=== PATIENT | female | born 1970 | race African-American/Black ===

== ENCOUNTER 2025-02-07 14:10 | Outpatient (CLI) | payer OTHER, SELFPAY ==
--- NOTE | ~2025-02-07 | MR_ITS ---
MRI of the left ankle Clinical history: Achilles tendinitis Technique: Coronal proton-density and proton-density fat-sat images, axial proton-density and proton- density fat-sat images, and sagittal proton-density and proton-density fat-sat images were acquired. Findings: Syndesmotic ligaments are intact. Anterior and posterior talofibular ligaments, and calcane ofibular ligament appear intact. There is mild increased signal of the anterior talofibular and calca yosi fibular ligaments, which could reflect sequela of prior sprain. Altered ligament intact. Medial flexor tendons, peroneal tendons, anterior extensor tendons, and Achilles tendon are intact. No osteochondral lesion of the talar dome seen. Subtalar joint effusion present. Joint spaces are int act. Plantar fascia intact. No soft tissue mass or fluid collection evident. There is mild subcutaneous so ft tissue edema about the ankle, nonspecific. Impression: Visualized tendons are intact. In particular, Achilles tendon is unremarkable. Increased signal of the anterior talofibular and calcaneofibular ligaments suggests sequela of prior sprain. Mild subcutaneous soft tissue edema, nonspecific. Reviewed, dictated and finalized at [facility]. Impression: Visualized tendons are intact. In particular, Achilles tendon is unremarkable. Increased signal of the anterior talofibular and calcaneofibular ligaments sugg ests sequela of prior sprain. Mild subcutaneous soft tissue edema, nonspecific.
== END 2025-02-07 14:11 | disposition home or self-care (01) ==
LOC: MICIMG 14:10
PROVIDERS: PCP Nurse Practitioner Family; Visit Provider Podiatrist Foot & Ankle Surgery
DX: M76.62 Achilles tendinitis, left leg (principal)
CPT/HCPCS: 73721

== ENCOUNTER 2025-03-04 15:34 | Outpatient (CLI) | payer OTHER, SELFPAY ==
--- NOTE | ~2025-03-04 | MM_ITS ---
EXAMINATION: MM screening raul BI w megan HISTORY: Screening TECHNIQUE: Craniocaudal and mediolateral oblique 3-D tomosynthesis images were obtained and synthetic 2-D images were generated. CAD analysis was submitted and interpreted. COMPARISON: No prior mammogram is available for comparison at this institution. BREAST PARENCHYMAL COMPOSITION: There are scattered areas of fibroglandular density. FINDINGS: Punctate calcifications detected bilaterally, morphologically benign in appearance, dermal in origin. Otherwise unremarkable parenchymal pattern without suspicious microcalcifications, architectural dist ortion, discrete masses or significant asymmetry. IMPRESSION: 1. No mammographic or tomographic evidence of malignancy. 2. Recommend routine screening mammography in one year. BI-RADS Category 2: Benign finding(s). Reviewed, dictated and finalized at location A.
--- OUTSIDE RECORDS SUMMARY | 2025-03-04 15:37 | XMS_ITS | Patient Health Record ---
Author Organization [facility] Address [address] [place] [address] Care Team Providers Care Construction Crew Member Name Role Phone Leonel Ortiz Unavailable [phone] Allergies Allergen (clinical drug ingredient) Drug/Non Drug Allergy documented on EMR Reaction Allergy Type Onset Date Status morphine Morphine hives Drug Allergy Active Reason For Referral No Information Medications Medication SIG (Take, Route, Frequency, Duration) Notes Start Date End Date Status Atenolol-Chlorthalidone 100-25 MG Oral; Duration: 30 Active Social History Tobacco Use: Social History Observation Description Date Details (start date - stop date) Never Smoker NA - NA Tobacco Use/Smoking Question Answer Notes Are you a nonsmoker Problems Problem Type SNOMED Code ICD Code Onset Dates Problem Status W/U Status Risk Notes Problem Lumbar radiculopathy (659371854) Radiculopathy , lumbar region (M54.16) Active confirmed Problem Herniated nucleus pulposus, L4-5 left (M51.26) Active confirmed Plan Of Treatment No Information Medications Administered Medication Instructions Date of Administration Dosage Notes LEFT L4/5 SESI 08/17/2021 Medical (General) History Medical History History ICD Code High blood pressure bladder infections chronic bronchitis Surgical History Surgery Date(Month/Year) partial hysterectomy 1997 section 1989, , cholecystectomy 1999 Hospitalization History Reason Date(Month/Year) cholecystectomy 1999 section 1989, ,
--- OUTSIDE RECORDS SUMMARY | 2025-03-04 15:37 | XMS_ITS | Clinical Summary ---
Author Organization [facility] Health Address [address] [place] [address] Care Team Providers Care Litigation Secretary Name Role Phone Unavailable Primary Care Provider Unavailabl e Social History Tobacco Use Types Packs/Day Years Used Date Smoking Tobacco: Never Assessed Comments Unknown Sex and Gender Information Value Date Recorded Sex Assigned at Not on file Legal Sex Female 1:34 AM PST Gender Identity Not on file Sexual Orientation Not on file Plan of Treatment Not on file
--- OUTSIDE RECORDS SUMMARY | 2025-03-04 15:38 | XMS_ITS | Data Portability ---
Author Organization [facility] in Office Address [address] [place] [address] Assessment Encounter Date Assessment Date Assessment LastModified by Organization Details LastModified Time 10/24/2024 10/24/2024 I spent 22 minutes of jeix-nj-mdnv counselling and care coordination time with the patient. This includes reviewing medical records (medical, surgical, family and social history); updating medication and allergy information in the electronic health record; and ordering labs, medications, and education materials to continue patient care. Not available 10/24/2024 19:30:08 11/21/2024 11/21/2024 I spent 21 minutes of xfss-dm-ahhr counselling and care coordination time with the patient. This includes reviewing medical records (medical, surgical, family and social history); updating medication and allergy information in the electronic health record; and ordering labs, medications, and education materials to continue patient care. Not available 11/21/2024 20:08:04 12/19/2024 12/19/2024 I spent 25 minutes of wlrb-lc-hjoq counselling and care coordination time with the patient. This includes reviewing medical records (medical, surgical, family and social history); updating medication and allergy information in the electronic health record; and ordering labs, medications, and education materials to continue patient care. Not available 12/19/2024 18:39:44 01/16/2025 01/16/2025 I spent 21 minutes of xtcv-ip-csva counselling and care coordination time with the patient. This includes reviewing medical records (medical, surgical, family and social history); updating medication and allergy information in the electronic health record; and ordering labs, medications, and education materials to continue patient care. Not available 01/16/2025 17:00:33 02/25/2025 02/25/2025 I spent 22 minutes of sies-uw-qqan counselling and care coordination time with the patient. This includes reviewing medical records (medical, surgical, family and social history); updating medication and allergy information in the electronic health record; and ordering labs, medications, and education materials to continue patient care. Not available 02/25/2025 19:55:20 Plan of Treatment Reminders Order Date Submit Date Provider Last Modified By Organization Details Last Modified Time Details Appointments [id number] 2024 04:45P M Sivan guzman, FARHAT Not available Not available Not available Lab CMP, serum or plasma 2024 025 [employer] [facility] [place], [address], 03/01/2025 07:43:15 CBC w/ auto diff 2024 025 [employer] [facility], [facility] [place], [address], 03/01/2025 07:43:16 HbA1c (hemoglob in A1c), blood 2024 025 [employer] [place] [address] [place], [address], 03/01/2025 07:43:19 insulin, serum - FASTING 2024 025 [employer] [facility], [facility] [place], [address], 03/01/2025 07:43:18 C-peptide , serum 2024 025 [employer] [facility], [facility] [place], [address], 03/01/2025 07:43:17 Referral nutrition ist/albai willy referral - Pt had her RD no show her visit with her. Would like to get this new appt reschedul ed please. 2024 STANLEY Santosjerzykaylee, [address] [facility], [facility] [address], [place], [address], 12/19/2024 04:14:45 Procedures None recorded. Surgeries None recorded. Imaging None recorded. Medication Orders Mounjaro 15 mg/0.5 mL subcutane ous pen injector [id number] [facility]24[facility], [address], [place], [id number], 02/25/2025 20:54:01 Mounjaro 15 mg/0.5 mL subcutane ous pen injector 2024 025 [facility]05359, [address], [place], [id number], 01/16/2025 17:48:12 nystatin 100,000 unit/gram topical powder 2024 025 [facility] #78937, [address], [place], [id number], 12/19/2024 20:53:04 nystatin- triamcino lone 100,000 unit/g-0. 1 % topical cream 2024 025 [facility] #04505, [address], [place], [id number], 12/19/2024 20:53:06 Mounjaro 15 mg/0.5 mL subcutane ous pen injector 2024 025 [facility]53176, [address], [place], [id number], 12/19/2024 20:50:52 estradiol 1 mg/gram (0.1 %) transderm al gel packet 2024 025 [facility] #36748, [address], [place], [place], [id number], 11/21/2024 18:58:54 Prometriu m 100 mg capsule 2024 025 [facility] #60902, [address], [place], [place], [id number], 11/21/2024 18:58:55 Mounjaro 12.5 mg/0.5 mL subcutane ous pen injector 2024 025 [facility] #31892, [address], [place], [place], [id number], 12/19/2024 20:51:10 Mounjaro 10 mg/0.5 mL subcutane ous pen injector 2024 025 [facility] #94346, [address], [place], [place], [id number], 12/05/2024 21:40:03 Patient TargetsNo targets recorded. Patient Instructions Encounter Date Encounter Id Patient Instructions Last Modified By Organization Details Last Modified Time 10/24/2024 [id number] Any requested follow-up visits are listed below in the Plan of Care section. Go directly to the [employer] harvest contractor at [email or web address] to book a time. Not available 10/24/2024 16:33:42 It was a pleasur e to meet with you today! We discussed your progress with Mounjaro for weight management and your recent experience with rosuvastatin for cholesterol management. Your Care Plan Together, we decided that you would: - Increase your Mounjaro dosage to 10 mg. - Discontinue rosuvastatin due to leg pain. - Repeat cholesterol levels in six months. - Follow-up appointment scheduled for November 21 at 5:45 pm. Please carefully review the care plan we have decided upon, specific information regarding your medication, and important details about your treatment detailed below. Thank you for trusting us with your care! Not available 10/24/2024 19:27:34 11/21/2024 [id number] Any requested follow-up visits are listed below in the Plan of Care section. Go directly to the [employer] harvest contractor at [email or web address] to book a time. Not available 11/21/2024 19:01:46 It was a pleasur e to meet with you today! We discussed your health concerns related to weight management and dietary nutrition. Your Care Plan Together, we decided that you would: - Increase your Mounjaro dosage to 12.5 mg. - Continue taking Dulcolax liquid as needed for constipation. - Start taking Prometrium 100 mg in the evening to improve sleep quality. - Schedule a follow-up appointment on December 19. - Increase your protein intake by incorporating protein-rich foods such as yogurt into your diet. - Reconnect with a registered dietitian for personalized dietary guidance. - Continue drinking plenty of water throughout the day. - Monitor your weight and report any significant changes. - Avoid high-calorie side dishes and focus on balanced meals. - Stay active and gradually increase physical activity as your foot condition improves. - Contact your clinician if you experience any adverse effects from the medications or if you have any questions or concerns about your treatment plan. Not available 11/21/2024 19:01:46 12/19/2024 [id number] Any requested follow-up visits are listed below in the Plan of Care section. Go directly to the [employer] harvest contractor at [email or web address] to book a time. Not available 12/19/2024 18:31:53 It was a pleasur e to meet with you today! We discussed your health concerns related to constipation, a rash, and weight management. Your Care Plan Together, we decided that you would: - Take Linzess on an as-needed basis rather than daily, especially on days when you are not working. - Start using Nystatin powder for the rash under your stomach to keep the area dry and prevent fungal infections. - Use a steroid ointment as needed if the rash becomes extra irritated. - Increase your Mounjaro dosage to 15 mg. If you do not tolerate this dosage well, please let me know. - Continue taking your blood pressure medication at the increased dosage of 40 mg as prescribed by your other doctor. - Continue taking gabapentin at night for sciatic nerve pain. - Schedule a follow-up appointment in about four weeks to monitor your progress and make any necessary adjustments to your treatment plan. Please carefully review the care plan we have agreed upon above, which includes specific information about your medication, and other important details about your overall care. Thank you for trusting us with your care! Not available 12/19/2024 18:45:57 01/16/2025 [id number] Any requested follow-up visits are listed below in the Plan of Care section. Go directly to the [employer] harvest contractor at [email or web address] to book a time. Not available 01/16/2025 16:40:36 It was a pleasur e to meet with you today! We discussed your health concerns related to weight management, blood pressure, and fatigue. Your Care Plan Together, we decided that you would: - Continue taking Mounjaro at the current dosage. - Start taking the additional 5 mg of amlodipine as prescribed by your other doctor, in addition to the 40 mg you are already taking. - Begin taking Vitamin B12 supplements, 5,000 to 10,000 micrograms once daily, to help with fatigue. Take this in the morning with your other medications. - Stay hydrated, especially during the summer months. - Maintain your current level of physical activity, including walking during your breaks and lunch. - Monitor your blood pressure regularly to ensure it stabilizes with the new medication. - Consider discussing your workload and stress levels with your employer, as high stress can contribute to elevated blood pressure and fatigue. - Follow up in six weeks to reassess your progress and make any necessary adjustments to your treatment plan. Please carefully review the care plan we have decided upon above, including specific information about your medication, and any other important details about your overall care. Thank you for trusting us with your care! It was a pleasure to meet with you today! We discussed your health concerns related to weight management, blood pressure, and fatigue. Your Care Plan Together, we decided that you would: - Continue taking Mounjaro at the current dosage. - Start taking the additional 5 mg of amlodipine as prescribed by your other doctor, in addition to the 40 mg you are already taking. - Begin taking Vitamin B12 supplements, 5,000 to 10,000 micrograms once daily, to help with fatigue. Take this in the morning with your other medications. - Stay hydrated, especially during the summer months. - Maintain your current level of physical activity, including walking during your breaks and lunch. - Monitor your blood pressure regularly to ensure it stabilizes with the new medication. - Consider discussing your workload and stress levels with your employer, as high stress can contribute to elevated blood pressure and fatigue. - Follow up in six weeks to reassess your progress and make any necessary adjustments to your treatment plan. Please carefully review the care plan we have decided upon above, including specific information about your medication, and any other important details about your overall care. Thank you for trusting us with your care! Not available 01/16/2025 17:48:16 02/25/2025 [id number] Any requested follow-up visits are listed below in the Plan of Care section. Go directly to the [employer] harvest contractor at [email or web address] to book a time. To schedule or modify your visit, access the [employer] portal here: [email or web address] [email or web address] Not available 02/25/2025 19:58:30 For more information regarding common questions about weight in midlife, watch this short video from our Bilingual Secretary, . You will need to copy the following link into your browser to access the video: [email or web address] Of course, if you have further questions after watching, please reach out and I will be happy to support you. Dear Jake, It was great to see you today! Below is a summary of the plan we decided upon together: Type 2 diabetes - Please complete your fasting labs (hemoglobin A1c and fasting insulin) at [facility] as soon as possible. - Once results are back, we may add metformin or glipizide to improve blood sugar control and support further weight loss. - Continue your weekly Mounjaro injections as directed. Weight management - While your shirts feel slightly looser, the scale has not moved; keep tracking food portions and aim for gradual increases in daily steps. - Short walks during work breaks are helpful; try adding an evening or weekend walk when feasible. Blood pressure - Your blood pressure is well controlled with lisinopril 40 mg; keep taking it daily and monitor at home if you have a cuff. Cholesterol - No changes today; we will recheck a lipid panel at your next visit. Follow up - Our next telehealth visit is scheduled in four weeks; message me sooner once your labs are complete. If you have any questions or experience any new symptoms, please do not hesitate to reach out to our office. Sincerely, Sivan Salcedo NP [id number] Not available 02/25/2025 19:58:30 Reason for Referral Top Waddy/dietitian Refer ral for Diet education DM2 & Obesity Pt had her RD no show her visit with her. Would like to get this new appt rescheduled please. Referring Physician: Sivan Salcedo, Gynecology, Encounter Date: 11/21/2024 Results Created Date Observation Date Name Description Value Unit Range Abnormal Flag Note LastModifiedBy Organization Detail LastModifiedTime 02/29/2003/01/2025 COMPR EHENS PATRICIA METAB OLIC PANEL glucose 99 mg/dL 65-99 normal Fasti ng refer ence inter colton Not Available [employer] [facility] [address] [place], [address], 03/01/2025 07:43:15 02/29/20 25 03/01/2025 COMPR EHENS PATRICIA METAB OLIC PANEL urea nitrogen (BUN) 19 mg/dL 7-25 normal Not Available [employer] [facility] [address] [place], [address], 03/01/2025 07:43:15 02/29/20 25 03/01/2025 COMPR EHENS PATRICIA METAB OLIC PANEL creatinine 1.09 mg/dL 0.50-1 .03 high Not Available [address], [address], 03/01/2025 07:43:15 02/29/2003/01/2025 COMPR EHENS PATRICIA METAB OLIC PANEL eGFR 61 mL/mi n/1.7 3m2 > or = 60 normal Not Available [address], [address], 03/01/2025 07:43:15 02/29/2003/01/2025 COMPR EHENS PATRICIA METAB OLIC PANEL BUN/creatini ne ratio 17 (calc ) 6-22 normal Not Available [address], [address], 03/01/2025 07:43:15 02/29/20 25 03/01/2025 COMPR EHENS PATRICIA METAB OLIC PANEL sodium 141 mmol/ L 135-14 6 normal Not Available [address], [address], 03/01/2025 07:43:15 02/29/20 25 03/01/2025 COMPR EHENS PATRICIA METAB OLIC PANEL potassium 4.5 mmol/ L 3.5-5. 3 normal Not Available [address], [address], 03/01/2025 07:43:15 02/29/2003/01/2025 COMPR EHENS PATRICIA METAB OLIC PANEL chloride 106 mmol/ L 98-110 normal Not Available [address], [address], 03/01/2025 07:43:15 02/29/20 25 03/01/2025 COMPR EHENS PATRICIA METAB OLIC PANEL carbon dioxide 28 mmol/ L 20-32 normal Not Available [address], [address], 03/01/2025 07:43:15 02/29/2003/01/2025 COMPR EHENS PATRICIA METAB OLIC PANEL calcium 9.3 mg/dL 8.6-10 .4 normal Not Available [address], [address], 03/01/2025 07:43:15 02/29/2003/01/2025 COMPR EHENS PATRICIA METAB OLIC PANEL protein, total 7.5 g/dL 6.1-8. 1 normal Not Available [address], [address], 03/01/2025 07:43:15 02/29/2003/01/2025 COMPR EHENS PATRICIA METAB OLIC PANEL albumin 4.5 g/dL 3.6-5. 1 normal Not Available [address], [address], 03/01/2025 07:43:15 02/29/2003/01/2025 COMPR EHENS PATRICIA METAB OLIC PANEL globulin 3.0 g/dL_ (calc ) 1.9-3. 7 normal Not Available [address], [address], 03/01/2025 07:43:15 02/29/2003/01/2025 COMPR EHENS PATRICIA METAB OLIC PANEL albumin/glob ulin ratio 1.5 (calc ) 1.0-2. 5 normal Not Available [address], [address], 03/01/2025 07:43:15 02/29/2003/01/2025 COMPR EHENS PATRICIA METAB OLIC PANEL bilirubin, total 0.5 mg/dL 0.2-1. 2 normal Not Available [address], [address], 03/01/2025 07:43:15 02/29/20 25 03/01/2025 COMPR EHENS PATRICIA METAB OLIC PANEL alkaline phosphatase 51 U/L 37-153 normal Not Available [facility] [employer] [address], [address], 03/01/2025 07:43:15 02/29/20 25 03/01/2025 COMPR EHENS PATRICIA METAB OLIC PANEL AST 10 U/L 10-35 normal Not Available [address], [address], 03/01/2025 07:43:15 02/29/2003/01/2025 COMPR EHENS PATRICIA METAB OLIC PANEL ALT 9 U/L 6-29 normal Not Available [address], [address], 03/01/2025 07:43:15 02/29/20 25 03/01/2025 CBC (INCL UDES DIFF/ PLT) white blood cell count 6.3 thous and/u L 3.8-10 .8 normal Not Available [address], [address], 03/01/2025 07:43:16 02/29/20 25 03/01/2025 CBC (INCL UDES DIFF/ PLT) red blood cell count 4.70 daniel on/uL 3.80-5 .10 normal Not Available [address], [address], 03/01/2025 07:43:16 02/29/2003/01/2025 CBC (INCL UDES DIFF/ PLT) hemoglobin 13.9 g/dL 11.7-1 5.5 normal Not Available [address], [address], 03/01/2025 07:43:16 02/29/20 25 03/01/2025 CBC (INCL UDES DIFF/ PLT) hematocrit 43.1 % 35.0-4 5.0 normal Not Available [address], [address], 03/01/2025 07:43:16 02/29/2003/01/2025 CBC (INCL UDES DIFF/ PLT) MCV 91.7 fL 80.0-1 00.0 normal Not Available [facility] [address], [address], 03/01/2025 07:43:16 02/29/2003/01/2025 CBC (INCL UDES DIFF/ PLT) MCH 29.6 pg 27.0-3 3.0 normal Not Available [facility] [address], [address], 03/01/2025 07:43:16 02/29/2003/01/2025 CBC (INCL UDES DIFF/ PLT) MCHC 32.3 g/dL 32.0-3 6.0 normal For adult s, a sligh t decre ase in the calcu lated MCHC value (in the range of 30 to 32 g/dL) is most likel y not clini mack signi darwin t; josy er, it shoul d be inter prete d with cauti on in [facility] n with other red cell maria isabel eters and the patie nt's clini christa condi tion. Not Available [address], [address], 03/01/2025 07:43:16 02/29/2003/01/2025 CBC (INCL UDES DIFF/ PLT) RDW 15.0 % 11.0-1 5.0 normal Not Available [facility] [address], [address], 03/01/2025 07:43:16 02/29/2003/01/2025 CBC (INCL UDES DIFF/ PLT) platelet count 196 thous and/u L 140-40 0 normal Not Available [facility] [address], [address], 03/01/2025 07:43:16 02/29/20 25 03/01/2025 CBC (INCL UDES DIFF/ PLT) MPV 9.6 fL 7.5-12 .5 normal Not Available [address], [address], 03/01/2025 07:43:16 02/29/20 25 03/01/2025 CBC (INCL UDES DIFF/ PLT) absolute neutrophils 3711 cells /uL 1500-7 800 normal Not Available [address], [address], 03/01/2025 07:43:16 02/29/2003/01/2025 CBC (INCL UDES DIFF/ PLT) absolute lymphocytes 2136 cells /uL 850-39 00 normal Not Available [address], [address], 03/01/2025 07:43:16 02/29/20 25 03/01/2025 CBC (INCL UDES DIFF/ PLT) absolute monocytes 359 cells /uL 200-95 0 normal Not Available [address], [address], 03/01/2025 07:43:16 02/29/20 25 03/01/2025 CBC (INCL UDES DIFF/ PLT) absolute eosinophils 63 cells /uL 15-500 normal Not Available [address], [address], 03/01/2025 07:43:16 02/29/20 25 03/01/2025 CBC (INCL UDES DIFF/ PLT) absolute basophils 32 cells /uL 0-200 normal Not Available [address], [address], 03/01/2025 07:43:16 02/29/20 25 03/01/2025 CBC (INCL UDES DIFF/ PLT) neutrophils 58.9 % normal Not Available [address], [address], 03/01/2025 07:43:16 02/29/2003/01/2025 CBC (INCL UDES DIFF/ PLT) lymphocytes 33.9 % normal Not Available [address], [address], 03/01/2025 07:43:16 02/29/2003/01/2025 CBC (INCL UDES DIFF/ PLT) monocytes 5.7 % normal Not Available [address], [address], 03/01/2025 07:43:16 02/29/2003/01/2025 CBC (INCL UDES DIFF/ PLT) eosinophils 1.0 % normal Not Available [address], [address], 03/01/2025 07:43:16 02/29/2003/01/2025 CBC (INCL UDES DIFF/ PLT) basophils 0.5 % normal Not Available [address], [address], 03/01/2025 07:43:16 02/29/2003/01/2025 C-PEP TIDE C-peptide 3.98 NG/mL 0.80-3 .85 high Not Available [address], [address], 03/01/2025 07:43:17 02/29/2003/01/2025 INSUL IN insulin 31.0 uIU/m L high Refer ence Range < or = 18.4 Risk: Optim al < or = 18.4 Moder ate NA High >18.4 Adult cardi ovasc ular event risk categ ory cut point s (opti mal, moder ate, high) are based on Insul in Refer ence Inter colton studi es perfo rmed at [facility] Diagn ostic s in 2021. Not Available [address], [place], [address], 03/01/2025 07:43:18 02/29/20 25 03/01/2025 HEMOG LOBIN A1C hemoglobin A1C 6.1 %_of_ total _HGB <5.7 high For someo ne witho ut known diabe norman, a hemog lobin A1c value betwe en 5.7% and 6.4% is consi stent with predi abete s and shoul d be confi rmed with a follo w-up test. For someo ne with known diabe norman, a value <7% indic ates that their diabe norman is well contr olled . A1c targe ts shoul d be indiv idual ized based on durat ion of diabe norman, age, comor bid condi tions , and other consi derat ions. This assay resul t is consi stent with an incre ased risk of diabe norman. Curre ntly, no conse nsus exist s regar cindy use of hemog lobin A1c for diagn osis of diabe norman for child lam. Not Available [facility] [place] [address] [place], [address], 03/01/2025 07:43:19 Result Notes None recorded. Problems Name Problem SNOMED Code Status Onset Date Resolution Date Notes Provider Name and Address Organization Details Recorded Time Menopausal symptom 28570766 Active 2023 [place] [address] [place], [address], [employer] 4 08:25:14 Type 2 diabetes mellitus without complication 548378935 Active 2023 [place] [address] [place], [address], [employer] [facility] 4 08:53:32 History of hysterectomy 321800779 Active 2023 [place] [address] [place], [address], [employer] [facility] 4 08:53:43 Visual impairment 685131524 Active 2023 [place] [address] [place], [address] [place] [address] 2, [facility] 4 08:18:52 Hypertensive disorder 77827040 Active 2024 [place] [address] [place], [address], [facility] 5 18:59:15 Abnormal weight gain 726337763 Active 2024 Sivan guz[place] [address], [address], [facility] 5 19:26:24 Hyperlipidemia 36060461 Active 2024 Sivan guzman [place] [address] [place], [address], [facility] 5 19:26:42 Irritable bowel syndrome characterized by constipation 438771051 Active 2024 Sivan guz[place] [address] [place] [address], [facility] 5 21:41:53 Eruption 262059147 Active 2024 Sivan guzman [place] [address] [place], [address], [facility] 5 18:44:00 Essential hypertension 27461158 Active 2024 Sivan guzman [place] [address] [place] [address], [facility] 18:44:25 Obesity 909323728 Active 2024 Sivan guzman [place] [address] [place] [address], [facility] 5 19:43:46 Type 2 diabetes mellitus 30390317 Active 2024 Sivan gu[place] [address] [place] [address] 2, [facility] 22:29:47 Problem Notes None recorded. Procedures Surgical History Date Name Laterality Status Provider Name and Address Organization Details Recorded Time 07/29/20 Date of Last Mammogram completed FARHAT PortilloNovato [facility] 10/03/2024 19:14:56 03/18/20 24 Date of Last Pap Smear [place] [id number], [facility] 05/07/2024 11:01:58 11/18/19 Date of Last Colonoscopy completed FARHAT Portillo [place] [id number], [facility] 05/07/2024 11:01:58 Partial hysterectomy completed FARHAT Portillo [facility] , [facility] 05/10/2024 08:55:50 procedure on gallbladder completed FARHAT Portillo [place] [id number], [facility] 05/10/2024 08:56:00 delivery completed FARHAT Portillo [place] [id number], [facility] 05/10/2024 08:56:11 Imaging Results None recorded. Procedure Notes None recorded. Medical Equipment None Reported. Allergies Allergen ID Allergen Name Allergen Category Reaction Reaction Severity Criticality Documentation Date Start Date Code Code System Note Provider Name and Address Organization Details Recorded Time 21528 morphine medicatio n Not available Not available Not available 05/07/2024 7052 RxNorm FARHAT [facility] 2, [facility] 11:01:57 61496 levofloxa lc medicatio n Not available Not available Not available 05/07/2024 51617 RxNorm FARHAT [facility] 2, [facility] [employer] 4 11:01:57 Medications Name Sig Start Date Stop Date Status Note LastModified by Organization Details LastModified Time cyclobenzap rine 10 mg tablet TAKE 1 TABLET BY MOUTH THREE TIMES DAILY NEEDED FOR MUSCLE SPASM active Not Available Not Available No t Available Colace 100 mg capsule Take 1 capsule twice a day by oral route as directed for 30 days. 2024 active Not Available Not Available Not Avai lable lisinopril 20 mg tablet TAKE 1 TABLET BY MOUTH EVERY DAY IN THE MORNING 12/19 completed Not Available Not Available Not Available estradiol 0.05 mg/24 hr weekly transdermal patch APPLY 1 PATCH TOPICALLY TO THE SKIN EVERY WEEK DIRECTED 06/28 completed Not Available Not Available Not Available phentermine 37.5 mg tablet TAKE 2 TABLETS BY MOUTH ONCE DAILY 08/15 completed Not Available Not Available Not Available amlodipine 5 mg tablet TAKE 1 TABLET BY MOUTH DAILY 02/25 completed Not Available Not Available Not Available meloxicam 7.5 mg tablet TAKE 1 TABLET BY MOUTH DAILY active Not Available Not Available No t Available methocarbam ol 750 mg tablet TAKE 1 TABLET BY MOUTH THREE TIMES DAILY FOR 7 DAYS NEEDED active Not Available Not Available No t Available amlodipine 10 mg tablet TAKE 1 TABLET BY MOUTH EVERY DAY 02/25 completed Not Available Not Available Not Available cyanocobala min (vit B-12) 1,000 mcg/mL injection solution INJECT 1 ML INTO THE MUSCLE ONCE EVERY 3 WEEKS active Not Available Not Available No t Available lisinopril 10 mg tablet TAKE 1 TABLET BY MOUTH ONCE DAILY 02/25 completed Not Available Not Available Not Available nystatin-tr iamcinolone 100,000 unit/g-0.1 % topical cream MAY APPLY TO THE AFFECTED AREA(S) BY TOPICAL ROUTE 2 TIMES PER DAY IN THE MORNING AND EVENING PRN active Not Available Not Available No t Available BD Luer-Chely Syringe 3 mL 25 gauge x 1 INJECT 1 SYRINGE INTRAMUSC ULARLY EVERY 3 WEEKS active Not Available Not Available No t Available gabapentin 300 mg capsule TAKE 1 CAPSULE BY MOUTH AT BEDTIME active Not Available Not Available No t Available methylpredn isolone 4 mg tablets in a dose pack FOLLOW PACKAGE DIRECTION S 12/19 completed Not Available Not Available Not Available lisinopril 40 mg tablet TAKE 1 TABLET BY MOUTH DAILY active Not Available Not Available No t Available topiramate 100 mg tablet TAKE 1 TABLET BY MOUTH EVERY NIGHT AT BEDTIME active Not Available Not Available No t Available metformin ER 500 mg tablet,exte nded release 24 hr Take 1 tablet every day by oral route at dinner for 30 days. 2024 active Not Available Not Available Not Avai lable progesteron e micronized 100 mg capsule TAKE 1 CAPSULE BY MOUTH EVERY NIGHT AT BEDTIME active Not Available Not Available No t Available rosuvastati n 5 mg tablet TAKE 1 TABLET BY MOUTH EVERY NIGHT AT BEDTIME 10/24 completed Not Available Not Available Not Available BD PrecisionGl mar 25 gauge x 1 needle INJECT 1 NEEDLE INTRAMUSC ULARLY EVERY 3 WEEKS active Not Available Not Available No t Available estradiol 1 mg/gram (0.1 %) transdermal gel packet Apply 1 packet every day by transderm al route as directed for 90 days. 2024 active Not Available Not Available Not Avai lable estradiol 0.5 mg/0.5 gram (0.1 %) transdermal gel packet Apply 1 packet every day by transderm al route in the morning for 30 days. 08/15 completed Not Available Not Available Not Available Linzess 145 mcg capsule Take 1 capsule every day by oral route in the morning for 90 days. 2024 active Not Available Not Available Not Avai lable vit C 1,000 mg-multivit -minerals-M SM 1,000 mg oral efferv powder pack active Not Available Not Available Not Available Ozempic 0.25 mg or 0.5 mg (2 mg/1.5 mL) subcutaneou s pen injector 06/28 completed Not Available Not Available Not Available Ozempic 1 mg/dose (4 mg/3 mL) subcutaneou s pen injector INJECT 1 MG UNDER THE SKIN EVERY WEEK DIRECTED 08/15 completed Not Available Not Available Not Available Ozempic 2 mg/dose (8 mg/3 mL) subcutaneou s pen injector Inject 2 mg every week by subcutane ous route as directed for 30 days. 08/15 completed Not Available Not Available Not Available Mounjaro 7.5 mg/0.5 mL subcutaneou s pen injector ADMINISTE R 7.5 MG UNDER THE SKIN EVERY WEEK DIRECTED 11/21 completed Not Available Not Available Not Available Mounjaro 5 mg/0.5 mL subcutaneou s pen injector ADMINISTE R 5 MG UNDER THE SKIN EVERY WEEK DIRECTED 10/24 completed Not Available Not Available Not Available Mounjaro 15 mg/0.5 mL subcutaneou s pen injector Inject 15 mg every week by subcutane ous route as directed for 90 days. 2024 active Not Available Not Available Not Avai lable Mounjaro 10 mg/0.5 mL subcutaneou s pen injector ADMINISTE R 10 MG UNDER THE SKIN EVERY WEEK DIRECTED 12/05 completed Not Available Not Available Not Available Mounjaro 12.5 mg/0.5 mL subcutaneou s pen injector ADMINISTE R 12.5 MG UNDER THE SKIN EVERY WEEK DIRECTED 12/19 completed Not Available Not Available Not Available Mounjaro 2.5 mg/0.5 mL subcutaneou s pen injector ADMINISTE R 2.5 MG UNDER THE SKIN EVERY WEEK DIRECTED 09/12 completed Not Available Not Available Not Available Ozempic 0.25 mg or 0.5 mg (2 mg/3 mL) subcutaneou s pen injector INJECT 0.5 MG EVERY WEEK UNDER THE SKIN 06/28 completed Not Available Not Available Not Available Klayesta 100,000 unit/gram topical powder APPLY TO THE AFFECTED AREA TWICE DAILY NEEDED active Not Available Not Available No t Available Vitals Date Recorded Body height Body mass index (BMI) Body weight Provider Name and Address Organization Details Last Updated DateTime 10/24/2024 170.18 cm 39.2 kg/m2 922561.09 [place] [address] [place], [address] 10/24/2024 19:20:00 Date Recorded Body height Body mass index (BMI) Body weight Provider Name and Address Organization Details Last Updated DateTime 11/21/2024 170.18 cm 39.2 kg/m2 746566.09 [place] [address] [place], [address], [facility] 11/21/2024 18:48:25 Date Recorded Body height Body mass index (BMI) Body weight Provider Name and Address Organization Details Last Updated DateTime 12/19/2024 170.18 cm 38.4 kg/m2 060303.13 [place] [address] [place], , [facility] 12/19/2024 20:49:14 Date Recorded Body height Body mass index (BMI) Body weight Provider Name and Address Organization Details Last Updated DateTime 01/16/2025 170.18 cm 37.4 kg/m2 502829.[place] [address] [place], [address], [facility] 01/16/2025 16:46:59 Date Recorded Body height Body mass index (BMI) Body weight Provider Name and Address Organization Details Last Updated DateTime 02/25/2025 170.18 cm 37.4 kg/m2 789039.58 [place] [address] [place] [id number], [facility] 02/25/2025 19:49:10 Social History Question Answer Notes LastModified by [employer] Details LastModified Time Tobacco Smoking [place] [address] [place], [place], , [facility] 05/07/2024 09:44:48 What Is Your Relationship Status? Information not available 05/07/2024 Sex: Female Functional Status Question Answer Note LastModified by [employer] Details LastModified Time What is your level of alcohol consumption? None Information not available 05/07/2024 Are you currently employed? Yes Information not available 05/07/2024 What is your occupation? Occupation: [employer] Information not available 05/07/2024 Mental Status None recorded. Family History Relationship Description Onset Age of this Age Resolved Age Notes LastModified by Organization Details LastModified Time Mother Malignant tumor of breast 2019 Not available 08:29:56 Mother Hypothyroidi sm [id number] Not available 2024 19:03:00 Mother Type 2 diabetes mellitus [id number] Not available 2024 19:03:00 Medical History Condition Response Allergies (Food, seasonal, environmental ) N Other N Blood Transfusion N Drug/Latex Allergies/Reactions N Breast Cancer N Dermatologic Disorders N Lung Disease N Defects or Inherited Disease N Breast Problem N Gestational Diabetes N Hematologic disorders N Anesthesia Complications N History of STI N Polycystic ovary syndrome N Anxiety Disorder N Autoimmune disease N Arthritis N Infertility N Polyps N Acid Reflux (GERD) N History of abnormal pap N Cancer N Stroke N Varicosities N Neurologic/Epilepsy N Endometriosis Y High Cholesterol Y Headaches N Fibromyalgia N Kidney Disease N Heart Problems N Kidney or Bladder Problems N Thyroid Problems N GI Problems N Acne N Eating Disorder N Anemia N Art (IVF or FET) N Psychiatric Illness N Ovarian Cancer N Diabetes Y Pulmonary (TB, Asthma) N Hepatitis/Liver Disease N Eczema N Abuse/Domestic Violence N Trauma/Violence N Depression/ depression N Heart Disease N Pre-Eclampsia N Hypertension Y Osteoporosis N Thrombophilias N Gynecological History Statement/Question Response Date of Last Mammogram 07/29/2024 Date of Last Colonoscopy 11/17/2020 Date of LMP 2019 Date of Last Pap Smear 2024 Current Control Method Hysterectom y Approximate Hormone Replacement Therapy No Obstetrics History GPAL:G 4 P 3 1 0 3 Type Value Full Term 3 Premature 1 Living 3 Total 4 Past Encounters Encounter ID Performer Location Encounter Start Date Encounter Closed Date Diagnosis/Indication Diagnosis SNOMED-CT Code Diagnosis ICD10 Code Diagnosis Note [id number] Sivan Salcedo NP Main Office [address] [place] [address] 05/10/2024 07:34:01 05/13/2024 14:00:52 Menopausal symptom 17086239 N95.1 - Patient experienci ng hot flashes, night sweats, mood changes, weight gain, sleep disturbanc es, and brain fog.- Discussed the benefits of natural estrogen therapy, including improvemen t in menopausal symptoms and overall quality of life.- Educated on the use of topical estrogen (patch or gel) to minimize risks of stroke or clots.- Patient is a candidate for estrogen therapy due to less than 1% risk for breast cancer and stroke.- Initiated topical estrogen therapy.- Follow-up in 3 weeks to assess tolerance and effectiven ess of hormone regimen. Health edu cation given 332958288 Z71.9 - Provided detailed education on the benefits and risks of hormone therapy and GLP-1 injectable s.- Discussed the importance of hydration, protein, and fiber intake to mitigate side effects of Ozempic.- Educated on the importance of monitoring blood sugar levels and maintainin g a balanced diet.- Patient expressed understand ing and agreement with the treatment plan. Diet education 33407351 Z71.3 - Referred to a group of registered dietitians for virtual consultati ons covered by insurance. - Emphasized the importance of a balanced diet in managing diabetes and supporting weight loss.- Patient to receive educationa l resources and personaliz ed dietary plans from the dietitians . Type 2 marita betes mellitus without complication 551770970 E11.9 Z68.41 E78.5 I10 - Hemoglobin A1c reported to be over 6.5%, confirming diagnosis. - Discussed the use of GLP-1 injectable s (Ozempic) for weight loss and blood sugar control.- Educated on the administra tion of Ozempic, a once-weekl y injection, and potential side effects such as nausea.- Patient approved for Ozempic for one year by insurance. - Prescripti on for Ozempic sent to [facility].- Advised to monitor blood sugar levels and report any adverse effects.- Follow-up in 3 weeks to assess tolerance and effectiven ess of Ozempic. Screening for malignant neoplasm of breast 275694857 Z12.31 - Patient had a mammogram in February 2023 with normal results.- Order for annual mammogram sent to [facility].- Patient advised to call the hospital to confirm the order and schedule the appointmen t. Fatigue 57547071 R53.83 - Fatigue likely related to menopausal symptoms and Type 2 diabetes.- Addressing menopausal symptoms with hormone therapy and diabetes with Ozempic to improve overall energy levels.- Follow-up in 3 weeks to assess improvemen t in fatigue. History of hysterectomy 972908602 Z90.711 - Patient has a history of hysterecto my.- No need for progestero ne therapy unless estrogen alone is insufficie nt.- Monitoring for any symptoms that may require additional hormonal support. [id number] Sivan Salcedo NP Main Office [address] [place] [address] 05/31/2024 07:33:08 06/03/2024 07:55:22 Menopausal symptom 90196221 N95.1 - Patient experience d a severe headache, described as a migraine, after using the estradiol patch.- The patch failed to adhere properly to the skin despite multiple applicatio n attempts on different body areas and the use of additional adhesive aids.- Due to these issues, the estradiol patch will be discontinu ed.- Initiated estradiol gel or spray to be applied to the lower abdomen, with a reduced dose to mitigate the risk of headaches. - Patient educated on the new applicatio n method and advised to monitor for any adverse effects.- If insurance does not cover the new formulatio n, will explore options with the [facility] for better pricing. Type 2 marita betes mellitus without complication [id number] E11.9 Z68.41 E78.5 I10 - Patient is currently on Ozempic, initial dose tolerated without side effects.- Despite initial treatment, patient reports increased appetite.- Will increase the dose of Ozempic to enhance therapeuti c effect.- Prescripti on for the new dose sent to the patient's pharmacy.- Patient is also engaging in lifestyle modificati ons, including attending nutritioni st sessions at work and exercising at the gym 3-4 days a week.- Follow-up scheduled in 4 weeks to reassess the effectiven ess of the increased Ozempic dose and overall diabetes management . Screening for malignant neoplasm of breast 979233237 Z12.31 - Patient has a mammogram scheduled for later in July.- Will follow up on the results once the screening is completed. [id number] Sivan Salcedo NP Main Office [address] [place] [address] 06/28/2024 07:33:10 06/28/2024 15:32:49 Menopausal symptom 36793811 N95.1 - Patient is currently using estrogen gel applied to the upper thigh, which is effectivel y managing her symptoms without complicati ons.- Educated patient on proper applicatio n technique and confirmed that the gel is being absorbed well and not causing any issues.- No changes to the current hormone therapy regimen at this time. Type 2 marita betes mellitus without complication [id number] E11.9 Z68.41 E78.5 I10 - Patient is currently on Ozempic, previously at a dose of 0.5 mg weekly.- No adverse side effects reported from the medication .- Increased Ozempic dose to 1 mg weekly for the next 4 weeks to enhance glycemic control and potential weight loss.- Discussed the possibilit y of switching to Mounjaro if adequate weight loss is not achieved at higher doses of Ozempic.- Strongly recommende d the use of a nutritioni st for better management of type 2 diabetes.- No lab work required at this time.- Follow-up appointmen t scheduled for 4 weeks to re-evaluat e the effectiven ess of the increased Ozempic dose. Visual impairment 858470 003 H54.7 - Patient reports difficulty seeing at night, particular ly in poorly lit areas, which has become more noticeable since the time change.- Advised patient to follow up with an eye examinatio n to assess for potential changes in vision or need for a new prescripti on.- Patient has already scheduled an appointmen t with her optometris t.- Provided documentat ion for her employer to allow her to leave work 30 minutes early to avoid driving in the dark.- Educated patient on the commonalit y of decreased night vision with age and the importance of regular eye exams. [id number] Sivan Salcedo NP Main Office [address] [place] [address] 07/22/2024 08:08:09 07/24/2024 08:00:02 Type 2 diabetes mellitus without complication [id number] E11.9 Z68.41 E78.5 I10 - Patient has been on Ozempic, recently increased to 1 mg.- Tolerating the medication but experienci ng increased appetite.- Plan to increase the dose further as patient is three levels from the highest dose.- Follow-up in three weeks to monitor response to the increased dose.-Rout ine labs due to be ordered at her next follow up. Menopausal symptom 53437 002 N95.1 - Currently using estrogen gel.- Plan to increase estrogen dosage to counteract androgen effects, which may be contributi ng to symptoms such as hair growth.- Educated patient on the rationale for increasing estrogen to overpower androgen receptors. -Can consider addition of spironolac tone or other substance that would help decrease androgen levels and benefit hirsutism issues. Screening mammography 24 249959 Z12.31 - Confirmed that a mammogram was ordered due to an automated system prompt indicating it was due.- Advised patient to complete the mammogram for the year.- No further action required once the mammogram is completed. [id number] Sivan Salcedo NP Main Office [address] [place] [address] 08/15/2024 18:02:21 08/21/2024 13:51:34 Type 2 diabetes mellitus without complication [id number] E11.9 Z68.41 E78.5 I10 - Patient has been on Ozempic 2 mg monthly for the past >6 months with minimal weight loss (4-5 pounds).- Agreed to switch to Mounjaro; prior authorizat ion likely needed.- Ordered lab work to support liver and kidney function, re-evaluat e hemoglobin A1c, and fasting glucose.- Will consider adding an oral hypoglycem ic medication or referral to an endocrinol ogist based on lab results if needed.- Patient understand s and agrees with the treatment plan.-Hx HTN/High cholestero l/DM2/Obes ity-Discus sed switch from Ozempic to Mounjaro as well as risks/bene fits and difference s between the two therapies. -We will begin this therapy based on Insurance approval. Adult [facility] th examination [id number] Z00.00 - Referred patient to new primary care provider, Ambar Patel, in [place], [place] for ongoing management .- Instructed patient to make an appointmen t within the next 2-4 weeks.- If insurance issues arise, patient will notify us to find an alternativ e provider.- Sent necessary lab work to the new primary care provider. Fatigue 17545615 R53.83 - Patient reports significan t fatigue, and questions if labs are needed.-Up dated lab orders sent. Hypertensive disorder 38 755150 I10 - Patient's blood pressure has been elevated; bottom number was 93.- Patient increased lisinopril dose to 20 mg daily, resulting in symptomati c improvemen t.- Sent a 30-day supply of lisinopril 20 mg tablets to the pharmacy.- New primary care provider to monitor and potentiall y adjust antihypert ensive therapy. Menopausal symptom 63623 002 N95.1 - Patient stable on current estrogen gel therapy.- No refills needed at this time; patient will reach out if refills are required before follow-up. Achilles tendinitis 1165 4001 M76.60 - Patient has been experienci ng pain in the Achilles tendon, currently in a boot.- Referred to ict security specialist ; appointmen t scheduled for next .- Urgent care diagnosed inflammati on and prescribed antibiotic s.- Awaiting further evaluation by ict security specialist to rule out tear or other complicati ons. [id number] Sivan Salcedo NP Main Office [address] [place] [address] 09/12/2024 18:02:51 09/13/2024 04:10:56 Menopausal symptom 39076441 N95.1 - Patient stable on current estrogen gel therapy.- No refills needed at this time; patient will reach out if refills are required before follow-up. Type 2 marita betes mellitus without complication [id number] E11.9 Z68.41 E78.5 I10 - Patient was switched to Mounjaro and has been on the initial dose for one month.- Despite initial weight gain of 2 pounds, the dosage of Mounjaro will be increased to 5 mg.- Educated patient on the importance of adherence to the medication regimen and monitoring for any side effects.- Follow-up appointmen t scheduled in 3 weeks to assess response to the increased dosage. -Consider adding in Metformin 500mg if tolerates it along with Mounjaro IF we get to higher dosing and still not seeing the appropriat e weight loss occur. Will also wait for lab work to return. Hypertensive disorder 38 947665 I10 - Patient reports significan t improvemen t in symptoms with current antihypert ensive therapy (20 mg).- Advised patient to monitor blood pressure daily and maintain a log.- Patient to message blood pressure readings for documentat ion and further evaluation .- Reinforced the importance of adherence to the current medication regimen and regular monitoring .-Upcoming appointmen t with new PCP in October 2024. [id number] Sivan Salcedo NP Main Office [address] [place] [address] 10/03/2024 18:03:01 10/05/2024 04:07:32 Type 2 diabetes mellitus without complication [id number] E11.9 Z68.41 E78.5 I10 - Patient has been on Mounjaro 5 mg without any reported side effects.- Plan to increase the dosage to 7.5 mg for better glycemic control.- Prescripti on for Mounjaro 7.5 mg will be sent to the pharmacy.- Follow-up appointmen t scheduled for October 24 at 6:15 PM to monitor response to the increased dosage. Hypertensive disorder 38 471929 I10 - Patient has a 90-day supply of antihypert ensive medication already picked up.- No changes to current antihypert ensive regimen as blood pressure control appears stable.-Up coming appointmen t with new PCP in October 2024. Mixed hyperlipidemia 267 831549 E78.2 - Recent lab results show total cholestero l slightly elevated, but HDL cholestero l is at 86, which is favorable. - Triglyceri jin are low, and LDL cholestero l is at 110, slightly above the target of <100 but not concerning .- Patient is currently on a statin, which is effectivel y managing lipid levels.- Educated patient on the importance of monitoring LDL levels and maintainin g a healthy diet.- Plan to recheck cholestero l levels 6 months after reaching the optimal dose of Mounjaro to assess for further improvemen t.- Patient understand s and agrees with the treatment plan. [id number] Sivan Salcedo NP Main Office [address] [place] [address] 10/24/2024 18:32:31 10/25/2024 04:09:49 Type 2 diabetes mellitus without complication [id number] E11.9 Z68.41 E78.5 I10 - Patient is currently on Mounjaro, recently increased to 7.5 mg, now being increased to 10 mg.- Patient reports no side effects from the medication and has experience d a reduction in cravings, particular ly for ice cream.- Weight has decreased to 250 lbs, indicating some weight loss.- Educated patient on the importance of continued adherence to medication and lifestyle modificati ons.- Follow-up appointmen t scheduled for November 21 at 5:45 PM to monitor progress and adjust treatment as necessary. Hyperlipidemia [id number] E78.5 - Patient's LDL cholestero l is approximat gerber 10 points above the target level.- Patient had previously stopped taking rosuvastat in 5 mg due to perceived improvemen t in cholestero l levels.- Upon resuming rosuvastat in, patient experience d significan t leg pain and discontinu ed the medication again.- Advised patient to not restart rosuvastat in due to adverse effects.- Plan to re-evaluat e cholestero l levels in six months to assess the need for further treatment. - Educated patient on the importance of monitoring cholestero l levels and maintainin g a healthy diet and exercise regimen to manage hyperlipid emia. [id number] Sivan Salcedo NP Main Office [address] [place] [address] 11/21/2024 18:02:35 11/22/2024 04:09:31 Type 2 diabetes mellitus without complication [id number] E11.9 Z68.41 E78.5 I10 - Continues to experience weight reduction; weight currently 250 lbs, reflecting ongoing progress.- Prescribed Mounjaro (tirzepati de) 12.5 mg weekly; sent to the usual pharmacy.- Patient advised to maintain hydration with flavored water and to follow up for further adjustment as needed. Diet education [id number] Z71.3 - Patient referred for virtual registered dietitian consultati on for tailored dietary guidance, specifical ly strategies to increase protein intake while minimizing excessive side dishes.- Will coordinate scheduling with the dietitian and notify patient of any updates. Menopausal symptom 12827 002 N95.1 - Prescribed Prometrium (micronize d progestero ne) 100 mg nightly to support improved sleep quality.- Informed patient that enhanced rest may further assist weight management efforts. Abnormal weight gain [id number] R63.5 [id number] Sivan Salcedo NP Main Office [address] [place] [address] 12/19/2024 17:35:29 12/20/2024 04:46:28 Type 2 diabetes mellitus without complication [id number] E11.9 Z68.41 E78.5 I10 - Patient continues to experience changes in body compositio n, particular ly inches lost, indicating some therapeuti c response.- Dose of Mounjaro increased from 12.5 mg to 15 mg subcutaneo usly once weekly for improved glycemic and weight management ; advised to report any intoleranc e.- Patient encouraged to monitor for adverse effects and contact clinic if any concerns arise prior to next scheduled follow-up in approximat gerber four weeks. Eruption [id number] R21 - Patient reports an intertrigi nous rash along the abdominal region.- Started nystatin powder for antifungal and moisture control; instructed to apply powder regularly to keep the area dry.- Prescribed a low-potenc y topical steroid ointment to use as needed for additional irritation .- Advised patient to maintain adequate hygiene, allow the area to fully dry after bathing, and monitor for worsening symptoms. Essential hypertension [id number] I10 - Blood pressure medication dose increased to 40 mg daily (patient s external provider adjusted regimen last week).- Patient tolerating new dosage without reported side effects.- Continue current dosing; no additional interventi ons at this time. Constipation [id number] K5 9.00 - Patient describes intolerabl e GI side effects when taking Linzess consecutiv gerber; experience s abdominal cramping.- Advised patient to utilize Linzess as needed rather than daily, particular ly on days she can manage potential GI effects.- Instructed to maintain adequate hydration and fiber intake, and to reach out if symptoms worsen or remain unresolved . 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 [id number] Sivan Salcedo NP Main Office [address] [place] [address] 01/16/2025 16:07:39 01/17/2025 04:44:39 Abnormal weight gain [id number] R63.5 - Currently demonstrat ing gradual weight reduction (loss of approximat gerber 6 pounds recently), reflecting improved control compared to previous therapy.- Stable at this time; no additional interventi ons specifical ly required beyond existing regimen.- See Type 2 diabetes mellitus without complicati on below for shared treatment/ management plan. Type 2 marita betes mellitus without complication [id number] E11.9 Z68.41 E78.5 I10 - Continuing Mounjaro 15 mg weekly with evident improvemen t in weight management versus prior Ozempic use.- No new adverse effects reported; patient remains fatigued likely related to personal/w ork stress.- Recommende d vitamin B12 supplement ation (5,000 10,000 mcg daily) in the morning to minimize fatigue, advised adequate hydration. - No additional medication adjustment s at present; will evaluate pharmacoth erapy after blood pressure stabilizes .- Refills issued to span six weeks; advised patient to monitor progress and report any concerns.- Encouraged short walks during the workday and stress reduction as tolerated. [id number] Sivan Salcedo NP Main Office [address] [place] [address] 02/25/2025 19:02:59 02/26/2025 04:46:29 Type 2 diabetes mellitus without complication [id number] E78.5 E11.9 -Discussed total weight loss on mounjaro 15mg.-Subo ptimal weightloss of 26# over 10 months-Con tinue on Mounjaro no changes-Re quested update lab work to evaluate blood sugars/ins ulin management on GLP-1.-Onc e results return will decide if addition of metformin/ glipizide should be added. Essential hypertension [id number] I10 - Patient to continue managing BP therapy BP. Health Concerns Section Related Observation LastModified by Organization Detai ls LastModified Time None Recorded Concern Status LastModified by Organization Details LastModified Time None Recorded Advance Directives Directive None Recorded Payers Insurance Date Sequence Insurance Name Policy Number Policy Fair Covered Member ID Fair Member ID Guarantor Name 02/28/2025 1 ANTONIO [id number] Jake Ocampo [id number] Jake Bailey er Notes Date Note Type Note Provider Name and Address Organization Details Recorded Time 10/24/2024 text/html Patient is a 54 year old female presenting for a follow-up visit to discuss her weight management with Mounjaro and her cholesterol levels. Weight Management:- Patient is currently on Mounjaro for weight management, recently increased to 7.5mg.- She reports tolerating the medication well with no side effects.- She has noticed a decrease in her weight to 250 lbs, indicating some weight loss.- She also reports a decrease in her cravings, particularly for ice cream, which she used to consume regularly as a night snack. Cholesterol Management:- Patient was previously on rosuvastatin 5mg for cholesterol management.- She had stopped taking the medication when her cholesterol levels improved but restarted it recently.- Upon restarting, she experienced significant leg pain and discomfort, leading her to discontinue the medication again after only 2 days.- Her most recent cholesterol levels showed an LDL just about 10 points high, but overall, the levels were satisfactory. Social Hx:- Diet habits: Ice cream lover, reduced cravings recently Virtual Visit AttestationModality: VideoProvider Location: Home Patient Location: Home Patient State: [place]LA[place] Barakatgeorgina, [employer] [address] [place], [address], [facility] [employer] 10/24/2024 19:30:41 11/21/2024 text/html The patient is a 54-year-old female with a history of obesity presenting for follow-up on weight management. Weight Management- Current weight: 250 lbs- Reports tolerating the 10 mg dose of Mounjaro well, but has not experienced significant weight loss.- Reports a weight reduction to 250 lbs, a loss of almost 20 lbs from her initial weight.- Reports cravings have returned, particularly for Easter candy at work.- Not a big meat eater and struggles to incorporate protein into her diet.- Drinks a lot of flavored water throughout the day.- Prefers side dishes over main courses, which she identifies as a dietary challenge.- Tries to cook on Sundays for the week but often ends up throwing away food.- Eats breakfast before work but is not hungry at lunchtime, usually drinks water and walks around.- Tries to eat something after work but often feels stuffed. Foot Pain- Recently received an injection in her foot, which she describes as the worst injection she's ever had.- Has a follow-up appointment with the foot doctor tomorrow. Past Diagnostic Results:- Foot Injection (1 month ago): Painful, no further injections desired. PMHx:- Obesity Current Meds:- Mounjaro 10 milligram- Dulcolax- Prometrium 100 milligrams in the evening Social Hx:- Occupation: Works [employer]- Diet habits: Struggles with protein intake, tends to prefer side dishes over main courses- Physical activity: Limited due to foot condition, but improving Virtual Visit Attestation Modality: Video Provider Location: Home Patient Location: Home Patient [place]: [place] [address] [place], [address], [facility] 11/21/2024 20:08:40 12/19/2024 text/html The patient is a 54-year-old female with a history of hypertension, constipation, and sciatica presenting for follow-up. Constipation- Recently started Linzess, taking it on an empty stomach as directed.- Experienced significant abdominal cramping and discomfort after taking it for two consecutive days, leading to discontinuation.- Plans to resume taking Linzess on days off work to manage side effects. Weight Management- Currently on 12.5 mg of Mounjaro for weight management.- Reports losing inches, as noted by others, but expresses frustration with abdominal pannus, which she attributes to previous C-sections.- Engages in regular physical activity, walking six laps a day at work.- Considering increasing Mounjaro dosage to 15 mg. Hypertension- Recently had her antihypertensive medication dosage increased to 40 mg. Sciatica- Takes gabapentin at night for sciatica, reporting effective symptom management.- Recently experienced heel pain, which she managed with taping; has a follow-up appointment scheduled next month. Virtual Visit AttestationModality: VideoProvider Location: Home Patient Location: Home Patient [place]: [place] [address] [place], [address], [facility] 12/19/2024 20:53:19 01/16/2025 text/html The patient is a 54-year-old female with a history of hypertension and obesity presenting for follow-up on weight management and blood pressure control. Weight Management- Currently on Mounjaro, reports a weight loss of approximately 20 lbs since starting the medication, compared to 5 lbs with previous Ozempic use.- Current weight is 238-239 lbs.- Does not feel different but notices losing inches, as evidenced by looser clothing.- Reports significant fatigue, possibly due to long work hours and stress. Hypertension- Recent blood pressure readings around 158/82 mmHg.- Recently prescribed an additional 5 mg of amlodipine to be taken with her current 40 mg dose; plans to start the new dose tomorrow.- Suspects work-related stress is contributing to elevated blood pressure. 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 Virtual Visit AttestationModality: VideoProvider Location: Home Patient Location: Home Patient State: [id number] since starting mounjarovs 5lbs soledad Salcedo, FARHAT [address] [place], [address], [facility] [employer] 01/16/2025 17:49:23 02/25/2025 text/html Virtual Visit AttestationModality: VideoProvider Location: Home Patient Location: Home Patient State: [place] Chief complaint: Follow-up for type 2 diabetes mellitus without complication and abnormal weight gain. History of present illness hpi: Female presenting for diabetes and weight management follow-up. Type 2 diabetes mellitus A longstanding diagnosis managed with Mounjaro for the past ten months, yet weight loss has plateaued over the last four months despite escalation to the highest dose. - Reports no adverse effects from current medications. - Last hemoglobin A1c drawn several months ago; value not discussed today. - Plans to obtain fasting labs (hemoglobin A1c and fasting insulin) at [address] this week. - Willing to start metformin or glipizide depending on forthcoming A1c results. Abnormal weight gain / obesity Weight on today s intake is 239 lb with BMI 37.4. - States the scale has not changed; only minimal improvement in shirt looseness. - Sedentary work schedule limits activity to brief 5-15 minute walks during breaks, five to six days weekly. - Total weight loss since starting Mounjaro is 26 lb. Essential hypertension Blood pressure now controlled on lisinopril 40 mg orally daily. - Recently discontinued amlodipine 5 mg without loss of control. - Denies current symptoms of hypertension. Hyperlipidemia No new symptoms or medication changes discussed. Screening history: - Mammogram scheduled for 03-04-2025. Current medications: Mounjaro, dose not stated, subcutaneous once weekly Lisinopril 40 mg orally daily Allergies: Levofloxacin reaction not provided Morphine reaction not provided Vital signs: Height 5 ft 7 in, weight 239 lb, [place] [address] [place], [address], [facility] 02/25/2025 20:55:09 OBGyn Episode No OBEpisode recorded.
--- OUTSIDE RECORDS SUMMARY | 2025-03-04 15:38 | XMS_ITS ---
Author Organization [facility] Address [address] [place] [address] Care Team Providers Care Customer Project Manager Name Role Phone [facility] [phone] REASON FOR VISIT f/up labs Encounters Encounter Location Date Provider Diagnosis [facility] [address] [place] [address] 07/07/2024 [facility] Plan Of Treatment No Information Progress Notes * Dasha GONZALEZaDOB:12/1969 (54 yo F)Acc No.[id number]:07/07/2024 Progress Notes Patient: Jake BLANKENSHIP Provider: Ernesto MIRANDA :1970 A ge:54 Y S ex:Female Date:07/07/2024 Phone: Address:[address] [place], [place] [phone] Subjective: * Chief Complaints: * 1 . F/up labs. * Medical History: Objective: * Vitals: Assessment: Plan: * Treatment: * Billing Information: * Visit Code: * Procedure Codes: * Electronic signature of [facility] on 03/04/2025 at 04:37 PM EDT Sign off status: Pending * Provider: Ernesto MTZ [facility] Date: 09/06/2023 Generated for Batool ramirez/Jos/Selinaitting on: 03/04/2025 04:37 PM EDT
--- OUTSIDE RECORDS SUMMARY | 2025-03-04 15:38 | XMS_ITS | Patient Health Record ---
Author Organization [facility] Address [address] [place] [address] Care Team Providers Care Copy Editor Name Role Phone [facility] Unavailable [phone] SUNI DE JESUS Unavailable [phone] Allergies Allergen (clinical drug ingredient) Drug/Non Drug Allergy documented on EMR Reaction Allergy Type Onset Date Status morphine Morphine Itching Drug Allergy Active Reason For Referral No Information Medications Medication SIG (Take, Route, Frequency, Duration) Notes Start Date End Date Status Rosuvastatin Calcium 5 MG TAKE 1 TABLET BY MOUTH EVERY NIGHT AT BEDTIME Oral for 90 Days Active Fluticasone Propionate 50 MCG/ACT 2 puffs per nostril Nasally Once a day for 10 days 06/30/2024 Active Cyanocobalamin 1000 MCG/ML INJECT 1 ML I NTO THE MUSCLE ONCE EVERY 3 WEEKS Injection for 84 Days Active BD Luer-Chely Syringe 25G X 1 3 ML for 84 Days Active Lisinopril 10 MG Oral for 90 Days Active Amoxicillin-Pot Clavulanate 875-125 MG 1 tablet Orally every 12 hrs for 7 days 06/30/2024 Active Phentermine HCl 37.5 MG TAKE 2 TABLETS B Y MOUTH ONCE DAILY Oral for 30 Days Active Estradiol 0.5 MG/0.5GM Transdermal for 90 Days Active Ozempic (1 MG/DOSE) 4 MG/3ML Subcutaneous for 30 Days Act kari Social History Tobacco Use: Social History Observation Description Date Details (start date - stop date) Never Smoker NA - NA Tobacco Control (Standard) Question Answer Notes Tobacco use: Nonsmoker Vital Signs Height 67 in 06/30/2024 Patient Reported Normal Blood Pressure Patient Reported Normal Temperature Weight 250 lbs 06/30/2024 Patient Reported Normal Blood Pressure Patient Reported Normal Temperature BMI 39.15 kg/m2 06/30/2024 Patient Reported Normal Blood Pressure Patient Reported Normal Temperature Encounters Encounter Location Date Provider Diagnosis [facility] [address] [place] [address] 06/30/2024 SUNI DE JESUS Sinus pain J34.89 an d Acute URI J06.9 Assessments Encounter Date Diagnosis (ICD Code) Assessment Notes Treatment Notes Treatment Clinical Notes Section Notes 06/30/2024 Sinus pain (ICD-10 - J34.89) TREATMENT PLAN Patient appears to have symptoms most consistent with rhinosinusitis or nasopharyngitis. The most likely etiology for initial trigger is viral or allergic. The duration of symptoms and progression of symptoms are what may trigger us to treat with antibiotics instead of anti-allergy and nasal steroids. 1. First, if symptoms present for < 5 days, make sure covid and flu are negative by obtaining those tests. If positive, we can discuss paxlovid or tamiflu if indicated. 2. Flonase 2 puffs per nostril once daily (this will relieve postnasal drip, runny nose, and a cough associated with that) (if not allergic). We can also offer ipratroprium nasal solution to help with these symptoms if flonase does not help. 3. Taking antibiotics for a viral infection or allergies is not recommended. Antibiotics are medications that fight infections caused by bacteria; but Flu, COVID, and other common infections are caused by viruses. Taking antibiotics when you actually have a viral infection does more harm than good. If you take an antibiotic when you have a viral infection, the antibiotic attacks bacteria in your body- bacteria that are either beneficial or at least not causing disease. This misdirected treatment can then promote antibiotic-resistant properties in harmless bacteria that can be shared with other bacteria or create an opportunity for potentially harmful bacteria to replace harmless ones. This can result in untoward effects of gastrointestinal issues (diarrhea, bloating, discomfort), or worsening of symptoms due to overgrowth of harmful bacteria (pneumonia). We understand your symptoms may transform and change. Therefor, if there is no improvement in current symptoms at all in 7-10 days, you can consider antibiotic therapy but we will leave this decision to you. Consider this if you continue to have fevers >100.4F or have no improvement in symptoms at all. 4. Over the counter cepachol or chloraseptic for sore throat (if not allergic). 5. Ibuprofen 400-800mg every 8 hours for pain, inflammation, aches (if not allergic). 6. Benzonatate every 8 hours as needed if cough present. We can send this if requested although over the counter cough medications will also help similarly. 7. Will can offer a short course of steroids to help relieve congestion, drainage, and inflammatory symptoms if we feel you meet the indication and do not have an overt bacterial infection. Remember that if you are having sneezing, runny nose, watery eyes, headache, nasal congestion, you may have an allergic component and zyrtec, xyzal, claritin, or luz may greatly benefit you. Recommend follow up in 1 week. Female patients only please note: Control efficacy can be DIMINISHED while taking antibiotics. It is advised to take additional measures to prevent .PATIENT EDUCATION Acute sinusitis is an inflammation of the mucous membranes inside the nose and sinuses. Sinuses are the hollow spaces in your skull around the eyes and nose. Acute sinusitis often follows a cold. Acute sinusitis causes thick, discolored mucus that drains from the nose or down the back of the throat. It also can cause pain and pressure in your head and face along with a stuffy or blocked nose. In most cases, sinusitis gets better on its own in 1 to 2 weeks. But some mild symptoms may last for several weeks. Sometimes antibiotics are needed if there is a bacterial infection. Follow-up care is a burdick part of your treatment and safety. Be sure to make and go to all appointments, and call your doctor if you are having problems. It's also a good idea to know your test results and keep a list of the medicines you take. How can you care for yourself at home? Use saline (saltwater) nasal washes. This can help keep your nasal passages open and wash out mucus and allergens. You can buy saline nose washes at a grocery store or drugstore. Follow the instructions on the package. You can make your own at home. Add 1 teaspoon of non-iodized salt and 1 teaspoon of baking soda to 2 cups of distilled or boiled and cooled water. Fill a squeeze bottle or a nasal cleansing pot (such as a neti pot) with the nasal wash. Then put the tip into your nostril, and lean over the sink. With your mouth open, gently squirt the liquid. Repeat on the other side. Try a decongestant nasal spray like oxymetazoline (Afrin). Do not use it for more than 3 days in a row. Using it for more than 3 days can make your congestion worse. If needed, take an odff-zky-zguqytk pain medicine, such as acetaminophen (Tylenol), ibuprofen (Advil, Motrin), or naproxen (Aleve). Read and follow all instructions on the label. If the doctor prescribed antibiotics, take them as directed. Do not stop taking them just because you feel better. You need to take the full course of antibiotics. Be careful when taking iyzb-dke-mdbozcb cold or flu medicines and Tylenol at the same time. Many of these medicines have acetaminophen, which is Tylenol. Read the labels to make sure that you are not taking more than the recommended dose. Too much acetaminophen (Tylenol) can be harmful. Try a steroid nasal spray. It may help with your symptoms. Breathe warm, moist air. You can use a steamy shower, a hot bath, or a sink filled with hot water. Avoid cold, dry air. Using a humidifier in your home may help. Follow the directions for cleaning the machine. When should you call for help? Call your doctor now or seek immediate medical care if: You have new or worse swelling, redness, or pain in your face or around one or both of your eyes. You have double vision or a change in your vision. You have a high fever. You have a severe headache and a stiff neck. You have mental changes, such as feeling confused or much less alert. Watch closely for changes in your health, and be sure to contact your doctor if: You are not getting better as expected. 06/30/2024 Acute URI (ICD-10 - J06.9) Addendum: Chart reviewed. 54 yo F w/ acute URI. Likely viral in nature. Reasonable to provide Augmentin in case of bacterial involvement. Suni De Jesus, DO 06/30/2024 Other Follow the treatment plan as indicated by the provider. Take any medications as prescribed. If you have any questions about your prescription, ask the pharmacist. Call 911 anytime you think you may need emergency care. For example, call if:You have severe trouble breathing.You have a seizure.Call your doctor now or seek immediate medical care if:You have trouble breathing.You have a fever with a stiff neck or a severe headache.You have pain or pressure in your chest or belly.You have a fever or cough that returns after getting better.You feel very sleepy, dizzy, or confused.You are not urinating.You have severe muscle pain.You have severe weakness, or you are unsteady.You have medical conditions that are getting worse.Watch closely for changes in your health, and be sure to contact your doctor if:You do not get better as expected.You are having a problem with your medicine. You participated in a [employer] Rx request, considered an asynchronous visit where you provide your symptoms and medical history, and a treatment plan is formulated based on your submission. A treatment plan and patient education were provided based on your submission. If symptoms persist or worsen, you should seek in-person care or call 911 immediately for further evaluation. Plan Of Treatment Pending Test Test Name Order Date CBC (INCLUDES DIFF/PLT) (6399) 4 Insurance Providers Payer Name Payer Address Payer Phone Subscriber Number Group Number Insured Name Patient Relationship to Insured Coverage Start Date Coverage End Date [place] [id number] [place] [phone] [id number] Jake Zavala Self - patient is the insured Medical (General) History Medical History History ICD Code Denies
--- OUTSIDE RECORDS SUMMARY | 2025-03-04 15:38 | XMS_ITS | Clinical Summary ---
Author Organization [facility] Address [address] [place] [address] Care Team Providers Care Public Address Systems Mechanic Name Role Phone Unavailable Primary Care Provider Unavailabl e Source Comments [facility],non-owned Affiliates and Associated Physician Practices is amultiple site organization consisting of ambulatory clinics and hospital sitesin [place], [place], [place] and [place]. This disclosure is being madepursuant to the Care Everywhere program and may not contain all information available regarding this patient. Last updated 18.[facility] Allergies No known active allergies Medications * Be aware that medications may not be up to date on this document. Alwaysverify current medications with the patient. multivitamin daily (THERAGRAN) tablet Take 1 Tab by mouth daily with food. Active oxycodone-acetam inophen (PERCOCET) 5-325 MG tablet Take 1-2 Tabs by mouth every 4 hours as needed for Pain. 45 Tab 0 08/16/2012 Active Active Problems Problem Noted Date Diagnosed Date Cholecystitis 08/13/2012 Immunizations Immunization Administration Dates Next Due INFLUENZA VACCINE 08/14/2012 Social History Tobacco Use Types Packs/Day Years Used Date Smoking Tobacco: Never Smokeless Tobacco: Never Alcohol Use Standard Drinks/Week Comments No 0 (1 standard drink = 0.6 oz pur e alcohol) Comments Unknown Sex and Gender Information Value Date Recorded Sex Assigned at Not on file Legal Sex Female 6:02 AM TUB MENDER Gender Identity Not on file Sexual Orientation Not on file Last Filed Vital Signs Vital Sign Reading Time Taken Comments Blood Pressure 114/72 08/16/2012 12:50 PM TUB MENDER Pulse 86 08/16/2012 12:50 PM TUB MENDER Temperature 36.9 C (98.5 F) 08/16/2012 12:50 PM TUB MENDER Respiratory Rate 16 08/16/2012 12:50 PM TUB MENDER Oxygen Saturation 97% 08/16/2012 12:50 PM TUB MENDER Inhaled Oxygen Concentration - - Weight 104.3 kg (230 lb) 08/12/2012 8:14 PM TUB MENDER Height 170.2 cm (5' 7) 08/12/2012 8:14 PM TUB MENDER Body Mass Index 36.02 08/12/2012 8:14 PM TUB MENDER Plan of Treatment Health Maintenance Due Date Last Done Comments COLOGUARD (AGES 45-75) - COL ON CA SCREENING 1971 COLON MONITORING 1971 COLONOSCOPY - COLON CA SCREENING 1971 CT COLONOGRAPHY - COLON CA SCREENING 1971 Colorectal Cancer Screening 1971 FIT - COLON CA SCREENING 1971 FLEX SIG - COLON CA SCREENING 1971 LIPID TESTING 1971 MAMMOGRAM 1971 HIV SCREENING 1986 HEPATITIS C SCREENING 03/13/1989 DTAP/TDAP/TD VACCINES (1 - Tdap) 1990 HEPATITIS B VACCINE (1 of 3 - 19+ 3-dose series) 1990 PNEUMOCOCCAL VACCINE 50+ (1 of 1 - PCV) 2021 ZOSTER VACCINE (1 of 2) 2021 COVID-19 VACCINE (1 - 2023-2 5 season) 2024 DEPRESSION SCREENING 08/14/2024 INFLUENZA VACCINE (#1) 2025 08/14/2012 HIB VACCINE Aged Out No longer eligi ble based on patient's age to complete this topic HPV VACCINE Aged Out No longer eligi ble based on patient's age to complete this topic MENINGOCOCCAL (Group B) VACC INE SHARED DECISION-MAKING Aged Out No longer eligibl e based on patient's age to complete this topic MENINGOCOCCAL GROUPS A/C/Y/W VACCINE Aged Out No longer eligible b ased on patient's age to complete this topic Insurance [facility] Advance Directives * FULL RESUSCITATION (Latest Code Status on File) Date Activated Date Inactivated Comments 08/13/2012 5:34 AM 08/16/2012 3:52 PM
--- OUTSIDE RECORDS SUMMARY | 2025-03-04 15:38 | XMS_ITS | Encounter Summary ---
Author Organization [facility] Address [address] [place] [address] Care Team Providers Care Seat Trimmer Name Role Phone Unavailable Primary Care Provider Unavailabl e Prior Encounters Date Type Department Care Team Description 09/02/2019 Converted 13x Documents [facility] [address] [place] [address] <No scans attached> Plan of Treatment Not on file Procedures Procedure Name Priority Date/Time Associated Diagnosis Comments MISSED APPOINTMENT Routine 06/15/2019 2:00 AM CDT Visit Diagnoses Not on file
--- OUTSIDE RECORDS SUMMARY | 2025-03-04 15:38 | XMS_ITS | Clinical Summary ---
Author Organization [facility] Address [address] [place] [address] Phone Care Team Providers Care Sandwich Artist Name Role Phone Unavailable Primary Care Provider Unavailabl e Social History Tobacco Use Types Packs/Day Years Used Date Smoking Tobacco: Never Assessed Comments Unknown Sex and Gender Information Value Date Recorded Sex Assigned at Not on file Legal Sex Female 9:48 PM CDT Gender Identity Not on file Sexual Orientation Not on file Plan of Treatment Health Maintenance Due Date Last Done Comments Hepatitis C Virus (HCV) Screening 1971 TdaP Immunization 1971 Hepatitis B Immunization (1 of 3 - 19+ 3-dose series) 1990 Pap Smear 1992 Cervical Cancer Screening (CCS) 2001 HPV/Cotest 2001 Colonoscopy 2016 Colorectal Cancer Screening 2016 Cologuard 2021 Immunochemical Fecal Occult Blood 2021 Mammogram 2021 Pneumococcal Immunization (5 0+ years) (1 of 1 - PCV) 2021 Zoster Immunization (1 of 2) 2021 Influenza Immunization (#1) 2024 SARS-COV-2 Immunization ( - 2023-25 season) 2024 Respiratory Syncytial Virus (RSV) Immunization (Adult) (1 - 1-dose 75+ series) 2046 Meningococcal Immunization (ACWY) Aged Out No longer eligible based on patient's age to complete this topic Pneumococcal Immunization Combined Aged Out No longer eligible based on patient's age to complete this topic Rotavirus Immunization Aged Out No lo nger eligible based on patient's age to complete this topic
== END 2025-03-04 15:35 | disposition home or self-care (01) ==
LOC: ANHIMG 15:36
PROVIDERS: PCP Nurse Practitioner Family; Visit Provider Nurse Practitioner Family
DX: Z12.31 Encounter for screening mammogram for malignant neoplasm of breast (principal)
CPT/HCPCS: 77063; 77067

== ENCOUNTER 2025-06-27 02:43 | Day surgery (SDC) | payer OTHER, SELFPAY ==
[2025-06-16 12:17] VITALS: BMI 39.2
[2025-06-27 06:33] VITALS: BP 144/92; PULSE 121; RESP 18; TEMP 36.2; O2SAT 100
--- NOTE | 2025-06-27 06:42 | P.PNAN_ITS ---
Anes - Initial Pre Proc Eval Procedure: Operation Date: 06/27/25 07:30 Proposed Procedures p Screening Colonoscopy - Manolo Javed MD Date/Time: 06/27/25 06:42 Surgeon: Manolo Javed MD Pre Op Diagnosis: Encounter for screening for malignant neoplasm of Patient Data Age: 55 Gender: F Height: 1.7 m Weight: 118.1 kg Last Vital Signs Temp 36.2 C L 06/27/25 06:33 Pulse 121 H 06/27/25 06:33 Resp 18 06/27/25 06:33 BP 144/92 H 06/27/25 06:33 Pulse Ox 100 06/27/25 06:33 O2 Del Method Room Air 06/27/25 06:33 Allergies Allergy/AdvReac Type Severity Reaction Status Date / Time morphine Allergy Itching Verified 06/27/25 06:29 levothyroxine AdvReac Itching Verified 06/27/25 06:29 Home Medications ?Medication ?Instructions ?Recorded ?Confirmed ?Type lisinopril 40 mg tablet 40 mg PO DAILY #90 tabs /11/0506/27/25 Rx cyclobenzaprine 10 mg tablet 10 mg PO TID PRN muscle s pasm #90 04/16/25 06/16/25 Rx tabs meloxicam 15 mg tablet 15 mg PO DAILY #90 tabs 11/0506/27/25 Rx metformin 500 mg tablet,extended 1,000 mg PO QPM 04/1606/27/25 History release 24 hr tirzepatide 15 mg/0.5 mL 15 mg subcut WEEKLY 04/16/25 06/27/25 History subcutaneous pen injector (Mounjaro) atorvastatin 10 mg tablet (Lipitor) 10 mg PO QHS #90 t abs 06/05/25 06/27/25 Rx hydrochlorothiazide 25 mg tablet See Rx Instructions . Route 06/20/25 06/27/25 Rx .COMPLEX #180 tabs Patient hx anesthesia problems: none Family hx anesthesia problems: none Results Review: All pre-operative results and documents have been reviewed as part of the pre- operative evaluation. COUNTS INCLUDE 234 BEDS AT THE [facility] Past Medical History Medical History (Updated 06/27/25 @ 07:33 by Manolo Javed MD) Gallbladder disorder Diabetes Surgical History Surgical History (Updated 02/05/25 @ 07:23 by Shiraz Acevedo [facility]) Previous section History of cholecystectomy History of partial hysterectomy Family History Family History Mother Diabetes mellitus Cancer Thyroid disorder Breast cancer Grandparent Diabetes mellitus Hypertension Social History Social History Smoking status: Never smoker Alcohol intake: never Substance use: never Substance use type: does not use Living arrangements: alone Anes - Eval Final PreProcedure Day of Procedure 06/27/25 06:42 Patient weight: morbidly obese Heart: regular rate and rhythm Lungs: clear to auscultation Airway: Mallampati scale class II Neurological: alert and oriented Last oral intake: >/= 8 hours ASA classification: III Emergent: no Anesthetic plan: proceed Anesthesia type and monitoring: general GIVS and standard monitoring Results Review: All pre-operative results and documents have been reviewed as part of the pre- operative evaluation. Informed Consent: The patient's anesthetic plan and its attendant risks and benefits were discussed with the patient/family/POA. Questions were solicited and answers provided to the satisfaction of the patient/family/POA.
[2025-06-27] MEDS: LACTATED RINGERS 1,000 ML 150 ML IV CONT (06:44)
--- NOTE | 2025-06-27 07:33 | PM.IMHP ---
H&P: HPI History of Present Illness Date/Time: 06/27/25 07:33 Chief Complaint: Screening colonoscopy Narrative: This is the patient's first colonoscopy. There are no GI symptoms and there is no family history of colorectal cancer. Review of Systems Review of Systems: All systems reviewed & are unremarkable except as noted in HPI and below PMFSH Past Medical History Medical History (Updated 06/27/25 @ 07:33 by Manolo Javed MD) Gallbladder disorder Diabetes Surgical History Surgical History (Updated 02/05/25 @ 07:23 by Shiraz Acevedo [facility]) Previous section History of cholecystectomy History of partial hysterectomy Family History Family History Mother Diabetes mellitus Cancer Thyroid disorder Breast cancer Grandparent Diabetes mellitus Hypertension Social History Social History Smoking status: Never smoker Alcohol intake: never Substance use: never Substance use type: does not use Meds Home Medications and Allergies Home Medications ?Medication ?Instructions ?Recorded ?Confirmed ?Type lisinopril 40 mg tablet 40 mg PO DAILY #90 tabs 12/04/24 06/27/25 Rx cyclobenzaprine 10 mg tablet 10 mg PO TID PRN muscle spasm #90 04/16/25 06/16/25 Rx tabs meloxicam 15 mg tablet 15 mg PO DAILY #90 tabs 04/16/25 06/27/25 Rx metformin 500 mg tablet,extended 1,000 mg PO QPM 04/16/25 06/27/25 History release 24 hr tirzepatide 15 mg/0.5 mL 15 mg subcut WEEKLY 04/16/25 06/27/25 History subcutaneous pen injector (Mounjaro) atorvastatin 10 mg tablet (Lipitor) 10 mg PO QHS #90 tabs 06/05/25 06/27/25 Rx hydrochlorothiazide 25 mg tablet See Rx Instructions .Route 06/20/25 06/27/25 Rx .COMPLEX #180 tabs Allergies Allergy/AdvReac Type Severity Reaction Status Date / Time morphine Allergy Itching Verified 06/27/25 06:29 levothyroxine AdvReac Itching Verified 06/27/25 06:29 Vital Signs Vital Signs - 24 hr 06/27/25 06:33 Temperature 97.1 F L Pulse Rate 121 H Respiratory Rate 18 Blood Pressure 144/92 H Pulse Oximetry 100 Oxygen Delivery Room Air Exam Const: General: cooperative and healthy appearing Resp: Effort & Inspection: normal respiratory effort and able to speak in complete sentences Auscultation: clear to auscultation bilaterally Cardio: Rate: regular rate Rhythm: regular rhythm GI: Inspection: normal to inspection GI Palp: No No hepatosplenomegaly present Auscultation: normal bowel sounds Rectal Exam: deferred Skin: General skin exam: normal color Psych: Appearance: grossly normal Mental Status: mental status grossly normal Assessment and Plan Assessment and plan (1) Encounter for screening colonoscopy: Code(s): Z12.11 - Encounter for screening for malignant neoplasm of colon Status: Acute Assessment and Plan: The patient is deemed a good candidate for the procedure. Consent signed. Will proceed.
[2025-06-27 08:01] VITALS: BP 121/74; PULSE 112; RESP 23; O2SAT 99
[2025-06-27 08:11] VITALS: BP 135/92; PULSE 107; RESP 21; O2SAT 99
[2025-06-27 08:21] VITALS: BP 138/92; PULSE 98; RESP 21; O2SAT 100
== END 2025-06-27 08:36 | disposition home or self-care (01) ==
PROVIDERS: PCP Nurse Practitioner Family; Referring Provider Nurse Practitioner Family; Visit Provider Internal Medicine Gastroenterology
PROC: 0DJD8ZZ Inspection of Lower Intestinal Tract, Via Natural or Artificial Opening Endoscopic (ICD-10-PCS; CPT 45378; principal; 2025-06-27 07:30)
DX: Z12.11 Encounter for screening for malignant neoplasm of colon (principal); K64.8 Other hemorrhoids; E11.9 Type 2 diabetes mellitus without complications; Z79.84 Long term (current) use of oral hypoglycemic drugs; Z79.85 Long-term (current) use of injectable non-insulin antidiabetic drugs; E66.01 Morbid (severe) obesity due to excess calories; Z68.41 Body mass index [BMI] 40.0-44.9, adult; Z98.890 Other specified postprocedural states; Z90.49 Acquired absence of other specified parts of digestive tract; Z80.3 Family history of malignant neoplasm of breast
CPT/HCPCS: 45378; 82948; J2704; J7120

== ENCOUNTER 2025-07-30 12:18 | Outpatient (CLI) | payer OTHER, SELFPAY ==
--- OUTSIDE RECORDS SUMMARY | 2024-07-07 08:15 | XMS_ITS ---
Author Organization [facility] Medical Address [address] [place] [address] Care Team Providers Care Taxi Cab Driver Name Role Phone [facility] [phone] REASON FOR VISIT f/up labs Encounters Encounter Location Date Provider Diagnosis [facility] [address] [place] [address] 07/07/2024 [facility] Plan Of Treatment No Information Progress Notes * Dasha GONZALEZaDOB:12/1969 (55 yo F)Acc No.[id number]:07/07/2024 Progress Notes Patient: Jake BLANKENSHIP Provider: Ernesto MIRANDA :1970 A ge:54 Y S ex:Female Date:07/07/2024 Phone: Address:[address] [place], [place] [id number] Subjective: * Chief Complaints: * 1 . F/up labs. * Medical History: Objective: * Vitals: Assessment: Plan: * Treatment: * Billing Information: * Visit Code: * Procedure Codes: * Electronic signature of [facility] on 07/30/2025 at 03:10 PM EST Sign off status: Pending * Provider: Ernesto MTZ [facility] Date: 09/06/2023 Generated for Batool ramirez/Jos/Luisa on: 09/30/2024 03:10 PM EST
--- NOTE | ~2025-07-30 | MMUS_ITS ---
EXAMINATION: MM diagnostic raul LT w megan, US axilla LT INDICATION: 55-year old female; Evaluation of left breast/left axilla painful palpable lump for one month COMPARISON: 03/04/2025 TECHNIQUE: Digital breast tomosynthesis CC and MLO views of the LEFT breast and True lateral and spot compression of the LEFT breast were obtained with computer-aided detection to assist in interpretation of the study. A radiopaque skin marker was placed over the area of LEFT breast palpable lump. FINDINGS: The breasts are almost entirely fatty. There are no suspicious masses, calcifications, architectural distortion or any other abnormality in either breast. A superficial fat-containing mass with clearly defined capsule correlates to the radiopaque skin marker. LEFT BREAST ULTRASOUND FINDINGS: Targeted sonographic evaluation of the palpable lump area was completed. There is no sonographic abnormality that correlates to the area of palpable lump identified by the patient. IMPRESSION: A fat-containing mass most likely a lipoma in the axillary tail of the left breast correlates to the palpable area. No sonographic finding correlates to the palpable lump area in the LEFT breast. Recommendations: Clinical management of patient's palpable lump. BI-RADS Category 2: Benign finding(s). Reviewed, dictated and finalized at location A. ER DRIVER IMPRESSION: A fat-containing mass most likely a lipoma in the axillary tail of the left kali ast correlates to the palpable area. No sonographic finding correlates to the palpable lump area in the LEFT breast. Recommendations: Clinical management of patient's palpable lump. BI-RADS Category 2: Benign finding(s).
--- OUTSIDE RECORDS SUMMARY | 2025-07-30 14:11 | XMS_ITS | Clinical Summary ---
Author Organization [facility] Address [address] [place] [address] Phone Care Team Providers Care Senior Director Of [employer] Name Role Phone Unavailable Primary Care Provider [...] Comments Hepatitis C Virus (HCV) Screening 1971 Mammogram 1971 TdaP Immunization 1971 Hepatitis B Immunization (1 of 3 - 19+ 3-dose series) 1990 Pap Smear 1992 Cervical Cancer Screening (CCS) 2001 HPV/Cotest 2001 Cologuard 2016 Colonoscopy 2016 Colorectal Cancer Screening 2016 Immunochemical Fecal Occult Blood 2016 Pneumococcal Immunization (5 0+ years) (1 of 1 - PCV) 2021 Zoster Immunization (1 of 2) 2021 Influenza Immunization (#1) 2025 SARS-COV-2 Immunization ( - season) 2025 Respiratory Syncytial Virus (RSV) Immunization (Adult) (1 - 1-dose 75+ series) 2046 Human Papillomavirus (HPV) Immunization Aged Out No longer eligible b ased on patient's age to complete this topic Meningococcal Immunization (ACWY) Aged Out No longer eligible based on patient's age to complete this topic Rotavirus Immunization Aged Out No lo nger eligible based on patient's age to complete this topic
--- OUTSIDE RECORDS SUMMARY | 2025-07-30 14:11 | XMS_ITS | Patient Health Record ---
Author Organization [facility] Address [address] [place] [address] Care Team Providers Care Pot Tender Name Role Phone Leonel Ortiz Unavailable [phone] Allergies Allergen (clinical drug ingredient) Drug/Non Drug [...] W/U Status Risk Notes Problem Lumbar radiculopathy (912434501) Radiculopathy , lumbar region (M54.16) Active confirmed Problem Displacement of lumbar intervertebral disc without myelopathy (56213959) Herniated nucleus pulposus, L4-5 left (M51.26) Active confirmed Plan Of Treatment No Information Medications Administered Medication Instructions Date of Administration Dosage Notes LEFT L4/5 SESI 08/17/2021 Medical (General) History Medical History History ICD Code High blood pressure bladder infections chronic bronchitis Surgical History Surgery Date(Month/Year) partial hysterectomy 1997 section , cholecystectomy 1999 Hospitalization History Reason Date(Month/Year) cholecystectomy 1999 section 1989, ,
--- OUTSIDE RECORDS SUMMARY | 2025-07-30 14:11 | XMS_ITS | Patient Health Record ---
Author Organization [facility] Address [address] [place] [address] Support Name Relationship Address Phone Jake Gonzalez Guarantor Unknown Unavai lable Allergies Allergen (clinical drug ingredient) Drug/Non Drug Allergy documented on EMR Reaction Allergy Type Onset Date Status morphine Morphine Itching Drug Allergy Active Reason For Referral No Information Medications Medication SIG (Take, Route, Frequency, Duration) Notes Start Date End Date Status Rosuvastatin Calcium 5 MG TAKE 1 TABLET BY MOUTH EVERY NIGHT AT BEDTIME Oral; Duration: 90 Days Active Fluticasone Propionate 50 MCG/ACT 2 puffs per nostril Nasally Once a day; Duration: 10 days 06/30/2024 Active Cyanocobalamin 1000 MCG/ML INJECT 1 ML I NTO THE MUSCLE ONCE EVERY 3 WEEKS Injection; Duration: 84 Days Active BD Luer-Chely Syringe 25G X 1 3 ML ; Duration: 84 Days Active Lisinopril 10 MG Oral; Duration: 90 Days Active Amoxicillin-Pot Clavulanate 875-125 MG 1 tablet Orally every 12 hrs; Duration: 7 days 06/30/2024 Active Phentermine HCl 37.5 MG TAKE 2 TABLETS B Y MOUTH ONCE DAILY Oral; Duration: 30 Days Active Estradiol 0.5 MG/0.5GM Transdermal; Dura tion: 90 Days Active Ozempic (1 MG/DOSE) 4 MG/3ML Subcutaneou s; Duration: 30 Days Active Social History Tobacco Use: Social History Observation Description Date Details (start date - stop date) Never Smoker NA - NA Tobacco Control (Standard) Question Answer Notes Tobacco use: Nonsmoker Plan Of Treatment Pending Test Test Name Order Date CBC (INCLUDES DIFF/PLT) (6226) 4 Insurance Providers Payer Name Payer Address Payer Phone Subscriber Number Group Number Insured Name Patient Relationship to Insured Coverage Start Date Coverage End Date [id number] [employer] [address] [facility] [place] [phone] [id number] Jake Zavala Self - patient is the insured Medical (General) History Medical History History ICD Code Denies
--- OUTSIDE RECORDS SUMMARY | 2025-07-30 14:11 | XMS_ITS | Clinical Summary ---
Author Organization [facility] Address [address] [place] [address] Care Team Providers Care Operations Support Representative Name Role Phone Unavailable Primary Care Provider Unavailabl e Source Comments [facility],non-owned Affiliates and Associated Physician Practices is amultiple site organization consisting of ambulatory clinics and hospital sitesin [place], [place], [place] and [place]. This disclosure is being madepursuant to the Care Everywhere program and may not contain all information available regarding this patient. Last updated 18.[facility] Allergies No known active allergies Medications * [...] on file Legal Sex Female 6:02 AM BANKING OFFICER Gender Identity Not on file Sexual Orientation Not on file Last Filed Vital Signs Vital Sign Reading Time Taken Comments Blood Pressure 114/72 08/16/2012 12:50 PM BANKING OFFICER Pulse 86 08/16/2012 12:50 PM BANKING OFFICER Temperature 36.9 C (98.5 F) 08/16/2012 12:50 PM BANKING OFFICER Respiratory Rate 16 08/16/2012 12:50 PM BANKING OFFICER Oxygen Saturation 97% 08/16/2012 12:50 PM BANKING OFFICER Inhaled Oxygen Concentration - - Weight 104.3 kg (230 lb) 08/12/2012 8:14 PM BANKING OFFICER Height 170.2 cm (5' 7) 08/12/2012 8:14 PM BANKING OFFICER Body Mass Index 36.02 08/12/2012 8:14 PM BANKING OFFICER Plan of Treatment Health Maintenance Due Date [...] 2021 ZOSTER VACCINE (1 of 2) 2021 DEPRESSION SCREENING 08/14/2024 COVID-19 VACCINE (1 - 2024-2 6 season) 2025 INFLUENZA VACCINE (#1) 2025 08/14/2012 HIB VACCINE [...] patient's age to complete this topic Insurance [facility] Advance Directives * FULL RESUSCITATION (Latest Code Status on File) Date Activated Date Inactivated Comments 08/13/2012 5:34 AM 08/16/2012 3:52 PM
== END 2025-07-30 12:19 | disposition home or self-care (01) ==
LOC: ANHFOHIMG 12:19
PROVIDERS: PCP Nurse Practitioner Family; Visit Provider Nurse Practitioner Family
DX: N64.4 Mastodynia (principal); M79.622 Pain in left upper arm; M54.32 Sciatica, left side
CPT/HCPCS: 76882; 77061; 77065; G0279